=== PATIENT | male | born 1980 | race African-American/Black ===

== ENCOUNTER 2017-09-10 09:55 | Emergency (ER) | payer SELFPAY ==
[2017-09-10 10:03] VITALS: BP 141/82
--- NOTE | 2017-09-10 10:23 | ER Document Report ---
HPI - HPI Pain Level: 2 Context: 37 yo male c/o pain to right ear x several months. no fever no headache. feels bubbling in ear Associated Symptoms: None Exacerbated by: Denies Relieved by: Denies Similar symptoms previously: Yes Recently seen / treated by doctor: No - ROS Systems Reviewed and Negative: Yes All other systems reviewed and negative - CONSTITUTIONAL Constitutional: DENIES: Fever, Chills - EENT EENT: REPORTS: Ear Pain - right Past Medical History - General Information source: Patient - Social History Smoking Status: Former Smoker Chew tobacco use (# tins/day): No Frequency of alcohol use: None Drug Abuse: None Lives with: Family Family History: Reviewed & Not Pertinent Patient has suicidal ideation: No Patient has homicidal ideation: No - Medical History Medical History: Negative Renal/ Medical History: Denies: Hx Peritoneal Dialysis Vertical Provider Document - CONSTITUTIONAL Agree With Documented VS: Yes Exam Limitations: No Limitations General Appearance: WD/WN, No Apparent Distress - INFECTION CONTROL TRAVEL OUTSIDE OF THE [place] IN LAST 30 DAYS: No - HEENT HEENT: Atraumatic Notes: right TM with scarring. + effusion right TM. no erythema. good light reflex. no pre/post auricular tenderness. mastoid nontender sinuses nontender - NECK Neck: Normal Inspection, Supple - RESPIRATORY Respiratory: Breath Sounds Normal, No Respiratory Distress O2 Sat by Pulse Oximetry: 96 - CARDIOVASCULAR Cardiovascular: Regular Rate, Regular Rhythm - NEURO Level of Consciousness: Awake, Alert - DERM Integumentary: Warm, Dry Course - Re-evaluation Re-evalutation: 09/10/17 10:21 H&P c/w serous otitis media. no s/s mastoiditis. will treat with intranasal and oral steroids and antihistamine/decongestant. home care, ED return precautions and pcm follow up discussed. pt agreeable with plan and stable for discharge - Vital Signs Vital signs: Temp Pulse Resp BP Pulse Ox 98.1 F 79 20 141/82 H 96 09/10/17 10:01 09/10/17 10:01 09/10/17 10:01 09/10/17 10:01 09/10/17 10:01 Discharge - Discharge Clinical Impression: Serous otitis media Qualifiers: Chronicity: acute Laterality: right Recurrence: not specified as recurrent Qualified Code(s): H65.01 - Acute serous otitis media, right ear Condition: Stable Disposition: HOME, SELF-CARE Instructions: Serous Otitis Media ([facility]), Decongestant-Antihistamine Medication ([facility]), Steroid Medication Additional Instructions: You have fluid behind your ear drum. There is no infection or rupture Take medications as prescribed Recommend OTC antihistamine/decongestant such as Krystin D or Zyrtec D in addition to prescribed meds increase hydration follow up with primary care return to ER for any worsening Prescriptions: Fluticasone Propionate [Flonase Nasal Steen 50 Mcg/Steen 16 gm] 2 sprays NASL DAILY #1 inhaler Prednisone 20 mg PO BID #20 tablet
== END 2017-09-10 10:30 | disposition home or self-care (01) ==
LOC: ER 09:55
DX: H65.01 Acute serous otitis media, right ear (principal); H92.01 Otalgia, right ear; Z87.891 Personal history of nicotine dependence
CPT/HCPCS: 99282

== ENCOUNTER 2018-11-21 06:56 | Emergency (ER) | payer SELFPAY ==
[2018-11-21] MEDS ORDERED: IBUPROFEN 600 MG TABLET PO ONE (08:12)
--- NOTE | 2018-11-21 08:12 | ER Document Report ---
ED Extremity Problem, Lower - General Chief Complaint: Ankle Pain Stated Complaint: ANKLE PAIN Time Seen by Provider: 11/21/18 07:28 TRAVEL OUTSIDE OF THE [place] IN LAST 30 DAYS: No - HPI Notes: Patient is a 38-year-old male that presents to the emergency department for chief complaint of right ankle pain. Patient states 6 days ago he fell off a stage and was evaluated at [facility]. He was told he had a broken ankle and was placed in a splint. Patient is not sure who he was referred to for follow-up but states he has not made an appointment because he does not have health insurance. He states today he slipped and fell down 4 stairs in his garage. He denied any head injury or loss of consciousness. He states that he hit his ankle on the way down and is having increased pain. The pain is mostly on the medial aspect of his right ankle and is worse with any kind of movement or palpation. He states this is where his pain was previously but has been exacerbated. He denies taking pain medication this morning. Past Medical History: Negative Past Surgical History: TM tubes Social History: Daily tobacco. Denies drug and alcohol use Family History: Reviewed and noncontributory for presenting illness Allergies: Reviewed, see documented allergy list. REVIEW OF SYSTEMS: CONSTITUTIONAL : No fever No chills No diaphoresis No recent illness EENT: No vision changes No congestion No sore throat CARDIOVASCULAR: No chest pain No palpitations RESPIRATORY: No shortness of breath No cough No difficulty breathing GASTROINTESTINAL: No abdominal pain No nausea No vomiting No diarrhea GENITOURINARY: No dysuria No hematuria No difficulty urinating MUSCULOSKELETAL: No back pain Right ankle pain No arm pain SKIN: No rashes No lesions LYMPHATIC: No swollen, enlarged glands. NEUROLOGICAL: No lightheadedness No headache No weakness No paresthesias PSYCHIATRIC: No anxiety No depression PHYSICAL EXAMINATION: Vital signs reviewed, nursing noted reviewed. GENERAL: Well-appearing, well-nourished and in no acute distress. HEAD: Atraumatic, normocephalic. EYES: Eyes appear normal, extraocular movements intact, sclera anicteric, conjunctiva are normal. ENT: nares patent, oropharynx clear without exudates. Moist mucous membranes. NECK: Normal range of motion, supple without lymphadenopathy LUNGS: Breath sounds clear to auscultation bilaterally and equal. No wheezes rales or rhonchi. HEART: Regular rate and rhythm without murmurs ABDOMEN: Soft, nontender, normoactive bowel sounds. No rebound, guarding, or rigidity. No masses appreciated. EXTREMITIES: Edema and tenderness over the medial malleolus of right ankle good with decreased range of motion. No foot tenderness or lateral malleolar tenderness. No fibular head tenderness. No open wounds. NEUROLOGICAL: No focal neurological deficits. Moves all extremities spontaneously Motor and sensory grossly intact on exam. PSYCH: Normal mood, normal affect. SKIN: Warm, Dry, normal turgor, no rashes or lesions noted on exposed skin - Related Data Allergies/Adverse Reactions: No Known Allergies Allergy (Unverified 09/10/17 09:56) Past Medical History - Social History Smoking Status: Unknown if Ever Smoked Chew tobacco use (# tins/day): No Frequency of alcohol use: None Drug Abuse: None Family History: Reviewed & Not Pertinent Patient has suicidal ideation: No Patient has homicidal ideation: No Renal/ Medical History: Denies: Hx Peritoneal Dialysis Physical Exam - Vital signs Vitals: Temp Pulse Resp BP Pulse Ox 97.6 F 74 16 157/91 H 96 11/21/18 07:02 11/21/18 07:02 11/21/18 07:02 11/21/18 07:02 11/21/18 07:02 Course - Re-evaluation Re-evalutation: 11/21/18 08:11 Vitals reviewed. Nursing notes reviewed. Patient ordered Motrin for pain. Repeat x-rays of the right ankle have been obtained. I did take down his splint and he has no open skin wounds. He is tender medially. Currently awaiting x- ray results. 11/21/18 09:22 Patient's x-ray does not show any bony injury but does show a mild separation of the ankle mortise. Patient was placed back in a posterior and stirrup splint. He does have a referral to orthopedic surgery that was initially given after his first ER visit which she is encouraged to keep. No new appearing injuries on x- ray. Ankle X-Ray 11/21/18 07:13 IMPRESSION: As above. Patient discharged in stable condition. - Vital Signs Vital signs: Temp Pulse Resp BP Pulse Ox 97.6 F 74 16 157/91 H 96 11/21/18 07:02 11/21/18 07:02 11/21/18 07:02 11/21/18 07:02 11/21/18 07:02 Discharge - Discharge Clinical Impression: Right ankle injury Qualifiers: Encounter type: initial encounter Qualified Code(s): S99.911A - Unspecified injury of right ankle, initial encounter Condition: Stable Disposition: HOME, SELF-CARE Instructions: Ankle Stirrup Splint ([facility]) Additional Instructions: Please return to the emergency department if you have any worsening, or concern of your symptoms. Please return to the emergency department if you develop chest pain, difficulty breathing, severe abdominal pain, or ongoing vomiting. Please follow-up with your primary care physician in 2-3 days and any other recommended physicians. If prescribed, take all medications as directed. If you have any questions or concerns do not hesitate to return the emergency department for evaluation. Your x-ray today did not show any broken bones however there is separation between the 2 bones in your ankle which is treated the same way a broken ankle would be treated. Please keep your splint in place. Please follow with the orthopedic surgeon that was referred to you by your initial physician. Forms: Return to Work Referrals: EVELYN ARGUETA MD [ACTIVE STAFF] - Follow up as needed
--- NOTE | 2018-11-21 08:22 | RADIOLOGY REPORT (SQ) ---
EXAM DESCRIPTION: ANKLE RIGHT COMPLETE COMPLETED DATE/TIME: 11/21/2018 7:34 am REASON FOR STUDY: ankle fx reinjured during fall COMPARISON: None. NUMBER OF VIEWS: Three views right ankle LIMITATIONS: External artifacts mildly limit bone detail. FINDINGS: No discrete displaced fracture. Mortise looks slightly widened medially. OTHER: No other significant finding. IMPRESSION: As above. TECHNICAL DOCUMENTATION: JOB ID: [id number] Reading location - IP/workstation name: [email or web address]
[2018-11-21 09:15] VITALS: BP 157/91
== END 2018-11-21 09:25 | disposition home or self-care (01) ==
LOC: ER 06:56
DX: S82.891D Other fracture of right lower leg, subsequent encounter for closed fracture with routine healing (principal); M25.571 Pain in right ankle and joints of right foot; W10.9XXD Fall (on) (from) unspecified stairs and steps, subsequent encounter
CPT/HCPCS: 99283

== ENCOUNTER 2018-12-23 16:11 | Emergency (ER) | payer SELFPAY ==
--- NOTE | 2018-12-23 18:02 | ER Document Report ---
HPI - HPI Patient complains to provider of: right ankle foot pain Time Seen by Provider: 12/23/18 17:47 Onset: Other - 6-7 weeks ago Quality of pain: Achy Severity: Severe Pain Level: 4 Context: Patient presents emergency department with complaints of right ankle foot pain. Reports approximately 6 to 7 weeks ago he fell down some stairs. He was evaluated in the emergency department at [place] and told he had a fracture. He came here about one week after that because he hurt his foot again and he was told that he did not have a fracture. They did put him in a posterior ankle splint with crutches and told him follow-up with orthopedics. Patient has not been able to follow-up with orthopedics because he does not have insurance. He returns today because he reports increased pain swelling to his foot and ankle. No other complaints such as fever vomiting diarrhea. Patient and his report they have been keeping the splint on since he left here a month ago. She does take it off to clean his foot but puts her right back on. Associated Symptoms: None Exacerbated by: Denies Relieved by: Denies Similar symptoms previously: Yes Recently seen / treated by doctor: Yes Past Medical History - General Information source: Patient - Social History Smoking Status: Unknown if Ever Smoked Frequency of alcohol use: None Drug Abuse: None Lives with: Family Family History: Reviewed & Not Pertinent Patient has suicidal ideation: No Patient has homicidal ideation: No - Medical History Medical History: Negative Renal/ Medical History: Denies: Hx Peritoneal Dialysis Surgical Hx: Negative Vertical Provider Document - CONSTITUTIONAL Agree With Documented VS: Yes Exam Limitations: No Limitations General Appearance: WD/WN, No Apparent Distress - INFECTION CONTROL TRAVEL OUTSIDE OF THE [place] IN LAST 30 DAYS: No - HEENT HEENT: Atraumatic, Normocephalic - NECK Neck: Supple - RESPIRATORY Respiratory: No Respiratory Distress - CARDIOVASCULAR Cardiovascular: Regular Rate - MUSCULOSKELETAL/EXTREMETIES Musculoskeletal/Extremeties: MAEW, FROM, Tender - Right ankle anterior and dorsal topline beading machine tender to palpation some swelling to his ankle. No erythema no warmth. No signs of infection. Good pedal pulse good cap refill - NEURO Level of Consciousness: Awake, Alert, Appropriate Motor/Sensory: No Motor Deficit - DERM Integumentary: Warm, Dry Course - Re-evaluation Re-evalutation: 12/23/18 18:41 CT of the lower extremity shows no acute fracture shows healed fracture of posterior and medial malleolus patient informed. Will place ankle stirrup splint on patient he has an appointment with Dr. Mcintosh [facility] tomorrow morning. He was instructed to keep that appointment to discuss possible Ortho referral. He was also instructed on ankle exercises. Motrin for pain. He verbalized understanding to all instructions. Dictation of this chart was performed using voice recognition software; therefore, there may be some unintended grammatical errors. 12/23/18 18:42 12/23/18 18:43 - Vital Signs Vital signs: Temp Pulse Resp BP Pulse Ox 97.9 F 77 14 149/81 H 96 12/23/18 16:27 12/23/18 16:27 12/23/18 16:27 12/23/18 16:27 12/23/18 16:27 - Diagnostic Test Radiology reviewed: Image reviewed, Reports reviewed - EXAM DESCRIPTION: CT RT LOWER EXTREMITY WITHOUT COMPLETED DATE/TIME: 12/23/2018 6:13 pm REASON FOR STUDY: trauma, continued pain, swelling COMPARISON: Right ankle plain films 11/21/2018 TECHNIQUE: CT scan of the right ankle performed without intravenous or oral contrast. Images reviewed with soft tissue and bone windows. Reconstructed coronal and sagittal MPR images reviewed. All images stored on PACS. All CT scanners at this facility use dose modulation, iterative reconstruction, and/or weight based dosing when appropriate to reduce radiation dose to as low as reasonably achievable (ALARA). [facility]: Dose Right [facility]: CareDose [facility]: Dose Right [facility]: Teradose 4D [facility]: [employer] RADIATION DOSE: CT Rad equipment meets quality standard of care and radiation dose reduction techniques were employed. CTDIvol: 4.1 mGy. DLP: 106 mGy-cm. mGy. LIMITATIONS: None. FINDINGS: Normal bone density. No acute fracture or malalignment. Healed medial malleolar and posterior malleolar fractures. Normal alignment at the ankle joint. No talus osteochondral defect. Intertarsal, tarsometatarsal joints are normal. Minimal plantar and dorsal calcaneal spurs are present. No soft tissue hematoma or mass. Limited view of the ligaments and tendons around the ankle are unremarkable. IMPRESSION: No acute or significant findings Procedures - Immobilization Right Ankle Pre-Proc Neuro Vasc Exam: Normal Immobilizer type: Ankle stirrup Performed by: PCT Post-Proc Neuro Vasc Exam: Unchanged from pre-exam Alignment checked and good: Yes Discharge - Discharge Clinical Impression: right Ankle foot pain, Healed medial and posterior mallelor Condition: Stable Disposition: HOME, SELF-CARE Instructions: Ankle Stirrup Splint ([facility]), Use of [id number]-[id number]-Mwxaagd Ibuprofen ([facility]) Additional Instructions: *You have been evaluated for right ankle foot pain, Healed medial malleolar and posterior malleolar fractures *Maintain the ankle stir up splint for comfort, *Rest/Elevate *Follow up with your primary care provider tomorrow for a referral to orthopedics as indicated *Take motrin as indicated for pain *Return to ED for worsening condition, changes, needs Monitor your blood pressure. Your blood pressure was elevated today. This may be because you were anxious, in pain or because you need medication. It is important to follow up with your primary care provider for full evaluation. Forms: Elevated Blood Pressure
--- NOTE | 2018-12-23 18:24 | RADIOLOGY REPORT (SQ) ---
EXAM DESCRIPTION: CT RT LOWER EXTREMITY WITHOUT COMPLETED DATE/TIME: 12/23/2018 6:13 pm REASON FOR STUDY: trauma, continued pain, swelling COMPARISON: Right ankle plain films 11/21/2018 TECHNIQUE: CT scan of the right ankle performed without intravenous or oral contrast. Images review ed with soft tissue and bone windows. Reconstructed coronal and sagittal MPR images reviewed. All i mages stored on PACS. All CT scanners at this facility use dose modulation, iterative reconstruction, and/or weight based d osing when appropriate to reduce radiation dose to as low as reasonably achievable (ALARA). [facility]: Dose Right [facility]: CareDose [facility]: Dose Right [facility]: Teradose 4D [facility]: [employer] RADIATION DOSE: CT Rad equipment meets quality standard of care and radiation dose reduction techniq ues were employed. CTDIvol: 4.1 mGy. DLP: 106 mGy-cm. mGy. LIMITATIONS: None. FINDINGS: Normal bone density. No acute fracture or malalignment. Healed medial malleolar and posterior malleolar fractures. Normal alignment at the ankle joint. No talus osteochondral defect. Intertarsal, tarsometatarsal joints are normal. Minimal plantar and dorsal calcaneal spurs are prese nt. No soft tissue hematoma or mass. Limited view of the ligaments and tendons around the ankle are unre markable. IMPRESSION: No acute or significant findings TECHNICAL DOCUMENTATION: JOB ID: [id number] Quality ID # [id number]: Final reports with documentation of one or more dose reduction techniques (e.g., Au tomated exposure control, adjustment of the mA and/or kV according to patient size, use of iterative reconstruction technique) 2010 [employer]- All Rights Reserved Reading location - IP/workstation name: [email or web address]
[2018-12-23 19:16] VITALS: BP 140/88
== END 2018-12-23 19:16 | disposition home or self-care (01) ==
LOC: ER 16:11
DX: M25.571 Pain in right ankle and joints of right foot (principal); M79.671 Pain in right foot
CPT/HCPCS: 99283; 73700; L1902